=== PATIENT | male | born 1950 | race Caucasian/White ===

== ENCOUNTER → 2024-09-16 | Outpatient (REF) | payer MEDICARE ==
[~2024-09-16] MED LIST: IOPAMIDOL 370 MG/ML 100 ML INFUS..BTL INJ ONE; METOPROLOL TARTRATE INJ 1 MG/ML VIAL ONE; NITROGLYCERIN 0.4 MG SUBL ONE; SODIUM CHLORIDE 0.9% 100 ML ONE
[2024-09-16 12:09] LABS: EST GLOMERULAR FILTRATION RATE 43.0 ML/MIN (>=60)
== END ==
LOC: CT 11:09
PROVIDERS: ATTEND Nurse Practitioner Acute Care
DX: I10 Essential (primary) hypertension (principal); E78.00 Pure hypercholesterolemia, unspecified; I20.0 Unstable angina
CPT/HCPCS: 36415; 75574; 75580; 82565; 84520; J7050; Q9967